=== PATIENT | female | born 1945 | race American Indian/Alaskan Native ===

== ENCOUNTER 2019-02-27 20:16 | Emergency (ER) | payer OTHER ==
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
[2019-02-28] MEDS ORDERED: NORCO 5/325 PO ONE (00:33)
[2019-02-28] MEDS ORDERED: ZOFRAN ODT PO ONE (00:33)
[2019-02-28] MEDS ORDERED: IBUPROFEN PO ONE (00:33)
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
[2019-02-28 01:38] VITALS: BP 197/102
== END 2019-02-28 01:15 | disposition home or self-care (01) ==
LOC: ED 20:16
DX: S83.91XA Sprain of unspecified site of right knee, initial encounter (principal); S80.01XA Contusion of right knee, initial encounter; S80.11XA Contusion of right lower leg, initial encounter; I11.0 Hypertensive heart disease with heart failure; I50.9 Heart failure, unspecified; F17.200 Nicotine dependence, unspecified, uncomplicated; F12.10 Cannabis abuse, uncomplicated; V49.59XA Passenger injured in collision with other motor vehicles in traffic accident, initial encounter; Y93.89 Activity, other specified; Y92.89 Other specified places as the place of occurrence of the external cause; Y99.8 Other external cause status
CPT/HCPCS: Q0162